=== PATIENT | female | born 1945 | race Two or more races ===

== ENCOUNTER 2024-06-15 03:15 | Emergency (ER) | payer OTHER, MEDICAID, SELFPAY ==
[2024-06-15 03:15] VITALS: PULSE 104; RESP 24; O2SAT 96
--- NOTE | 2024-06-15 03:25 | PD.EDADULT ---
ED General RME/HPI General Chief complaint: Anxiety Stated complaint: ANXIETY Time Seen by Provider: 06/15/24 03:22 Arrival date/time: 06/15/24 03:15 RME / HPI RME / HPI narrative: This section includes all my notes and documentations, including HPI, PE, and ED course. Hugo Angelo MD HPI: 78yo female with pmhx hypertension, methamphetamine and alcohol abuse, history of Parkinson disease BIBA presents to the ED after she requested to come to the ED. PPD was called due to the patient not having any pants on and patient requested to come in, so they called 911. Patient has incomprehensible speech and is unable to provide any history. ROS: Unobtainable due to the patient's incomprehensible speech. Physical Exam: General: Alert and oriented. Appears anxious. No acute distress. Eyes: Conjunctivae and lids clear. EOMI. PERRL. ENT: No nasal congestion. Neck: Supple. Heart: RRR. Lungs: No respiratory distress. Good air movement. No rhonchi, wheezing, rales. Abdomen: Soft and nontender. Normal bowel sounds. No distension. No rebound or guarding. Legs: No clubbing, cyanosis, edema. Skin: Warm and dry. Neuro: Alert and oriented X 3. Cranial Nerves II-XII grossly intact. No peripheral motor deficits. I ordered diagnostic tests. At 6 AM, the care of the patient was transferred to Dr. Sorensen. Hugo Angelo MD Related Data Home Medications ?Medication ?Instructions ?Recorded ?Confirmed pantoprazole 40 mg tablet,delayed 40 mg PO QDAY 08/09/22 05/31/24 release pramipexole 0.5 mg tablet 0.5 mg PO HS 08/09/22 05/31/24 simvastatin 20 mg tablet 20 mg PO DAILY 01/31/24 05/31/24 pioglitazone 15 mg tablet 15 mg PO QDAY 05/31/24 05/31/24 Previous Rx's ?Medication ?Instructions ?Recorded amlodipine 10 mg tablet 10 mg PO QDAY 30 days #30 tabs 06/02/24 folic acid 1 mg tablet 1 mg PO QDAY 14 days #14 tabs 06/02/24 gabapentin 100 mg capsule 200 mg (2 x 100 mg) PO BID 30 days 06/02/24 #0 caps lisinopril 10 mg tablet 10 mg PO DAILY 30 days #0 tabs 06/02/24 montelukast 10 mg tablet 10 mg PO DAILY 30 days #0 tabs 06/02/24 nortriptyline 10 mg capsule 10 mg PO QDAY 30 days #30 caps 06/02/24 Allergies Allergy/AdvReac Type Severity Reaction Status Date / Time No Known Allergies Allergy Verified 03/28/24 12:22 Review of Systems Review of Systems Systems Reviewed: All systems reviewed, normal except as documented ED Exam Narrative Physical exam: As noted in HPI. Course Quality Measures none Orders Category Date Time Status Bedside COVID-19 Antigen Test NOW Care 06/15/24 04:02 Active Bedside Influenza A&B Antigen Test NOW Care 06/15/24 04:02 Active EKG (ED ONLY) *Do not use* NOW Care 06/15/24 04:03 Completed Saline [Insert IV] NOW Care 06/15/24 04:02 Active Straight [In and Out Catheter] X1 Care 06/15/24 04:[address] head/brain wo con Stat Exams 06/15/24 04:03 Taken EKG (ED Only) Stat Exams 06/15/24 04:03 Draft XR chest 1V portable Stat Exams 06/15/24 04:18 Taken Acetaminophen Stat Lab 06/15/24 04:48 Received Alcohol, Blood Medical Stat Lab 06/15/24 04:48 Received Ammonia Stat Lab 06/15/24 04:48 Received CBC Stat Lab 06/15/24 04:48 Completed CK [Creatine Kinase] Stat Lab 06/15/24 04:48 Received CMP [Comprehensive Metabolic Panel] Stat Lab 06/15/24 04:48 Received Drug Screen,Urine Stat Lab 06/15/24 04:03 Ordered Lactate (Lactic Acid) Stat Lab 06/15/24 04:48 Completed Magnesium Stat Lab 06/15/24 04:48 Received Salicylate Stat Lab 06/15/24 04:48 Received TSH [Thyroid Stimulating Hormone] Stat Lab 06/15/24 04:48 Received Troponin I Stat Lab 06/15/24 04:48 Received UA [Urinalysis] Stat Lab 06/15/24 04:03 Ordered Vital Signs Vital signs: Vital Signs Temperature 98.0 F 06/15/24 03:49 Pulse Rate 76 06/15/24 03:49 Respiratory Rate 18 06/15/24 03:49 Blood Pressure 178/67 H 06/15/24 03:49 Pulse Oximetry (%) 100 06/15/24 03:49 Oxygen Delivery Method Room Air 06/15/24 03:49 Pulse ox is 100% on room air, which is normal according to my interpretation. [facility] Patient data External records reviewed:: [facility] previous records (Per chart review, patient was admitted here from 05/30/24-06/04/24 for acute renal failure.) Clinical information provided by:: patient Social determinants that could affect healthcare access:: substance use Patient has the following chronic illnesses:: hypertension, methamphetamine and alcohol abuse, history of Parkinson disease How is presenting disease/condition affected by chronic disease/condition?: exacerbated by Evaluation data The following diagnostics were reviewed and interpreted by me:: lab results, radiology exam(s) and EKG tracing(s) (My interpretation of the EKG: NSR (71 bpm) with no ST-T changes. Hugo Angelo MD) Lab and/or radiology exams considered but not ordered:: none Interpretation Summary: See HPI. Medications Medications considered but not ordered:: none Medication administrations:: see above, if any Consultations Consultation(s) initiated? (list below): No Diagnosis Differential Diagnosis ED Complaint MDM: anxiety, worsening psychiatric disorder, drug intoxication Most likely diagnosis given after review of the tests above:: see below Admission Indicated Admission indicated?: not indicated Explain why admission is indicated or not indicated:: Patient is pending work-up at the time of sign out. Admission Request Was there a request for admission?: No Disposition Plan Disposition Plan: other (specify) (Signed out to Dr. Sorensen at 0600 pending work-up and complete disposition.) Medical Decision Making Differential Diagnosis Differential Diagnosis: anxiety, worsening psychiatric disorder, drug intoxication Lab Data 06/15/24 04:48 06/15/24 04:48 Labs: Lab Results 06/15/24 Range/Units 04:48 WBC 8.0 (3.6-11.0) Thou/mm3 RBC 2.87 L (4.00-5.20) Miln/mm3 Hgb 9.0 L (12.0-16.0) g/dL Hct 28.2 L (36.0-46.0) % MCV 98 (80-100) fL MCH 31.4 (25.0-35.0) pg MCHC 31.9 (31.0-37.0) g/dl RDW Std Deviation 57.1 H (36.4-46.3) fL Plt Count 407 D (140-440) Thou/mm3 Neut % (Auto) 73 (37-80) % Lymph % (Auto) 18 (10-50) % Wilson % (Auto) 7 (0-12) % Eos % (Auto) 0 (0-10) % Baso % (Auto) 0 (0-2.5) % Neut # (Auto) 5.8 (1.8-7.7) Thou/mm3 Lymph # (Auto) 1.5 (1.0-4.8) Thou/mm3 Wilson # (Auto) 0.6 (0.0-0.8) Thou/mm3 Eos # (Auto) 0.0 (0.0-0.5) Thou/mm3 Baso # (Auto) 0.0 (0.0-0.2) Thou/mm3 Immature Gran # (Auto) 0.02 H (0.00-0.00) Thou/mm3 Absolute Nucleated RBC 0.00 (0.00-0.00) Thou/mm3 Immature Gran % 0 (0-0) % Nucleated RBC % 0 (0) /100 WBC Lactic Acid 0.9 (0.4-2.0) mMol/L Discharge Plan Prescriptions/Referrals Prescriptions/Med Rec: No Action pramipexole 0.5 mg tablet 0.5 mg PO HS Patient Comments: pantoprazole 40 mg Tablet,Delayed Release (Dr/Ec) 40 mg PO QDAY simvastatin 20 mg tablet 20 mg PO DAILY Patient Comments: TAKE 1 TABLET BY MOUTH EVERY DAY WITH DINNER pioglitazone 15 mg Tablet 15 mg PO QDAY amlodipine 10 mg Tablet 10 mg PO QDAY 30 Days Qty: 30 0RF nortriptyline 10 mg Capsule 10 mg PO QDAY 30 Days Qty: 30 0RF lisinopril 10 mg tablet 10 mg PO DAILY 30 Days Qty: 0 0RF Patient Comments: TAKE 1 TABLET BY MOUTH AT DINNER folic acid 1 mg tablet 1 mg PO QDAY 14 Days Qty: 14 0RF montelukast 10 mg tablet 10 mg PO DAILY 30 Days Qty: 0 0RF Patient Comments: TAKE 1 TABLET BY MOUTH EVERY DAY gabapentin 100 mg capsule 200 mg PO BID 30 Days Qty: 0 0RF Patient Comments: TAKE 2 CAPSULE BY MOUTH THREE TIMES A DAY Problem List Clinical Impression: AMS (altered mental status) Patient/Caregiver Discharge Instructions Print Language: Japanese
[2024-06-15 03:49] VITALS: BP 178/67; PULSE 76; RESP 18; TEMP 36.7; O2SAT 100
--- NOTE | 2024-06-15 04:03 | EKG_ITS ---
[facility] Test Date: 2024-06-15 Pat Name: SHANTE TIMMONS Department: Room: - Gender: Female [employer] Winder: : 1945 Requested By: Hugo Mooney Order Number: [id number] Reading MD: Hugo Mooney Measurements Intervals [place] Rate: 71 P: 57 SC: 149 QRS: 1 QRSD: 67 T: 55 QT: 395 QTc: 431 Interpretive Statements SINUS RHYTHM Compared to ECG 05/30/2024 19:22:20 No significant changes /store/S0/[id number]
--- NOTE | 2024-06-15 04:03 | XR_ITS ---
Examination: CT brain head without contrast. 2-D sagittal coronal reconstructions Date and time of exam:June 15, 2024 0459 hrs. Comparison June 09, 2024 Indications: Altered mental status today, altered mental status May 30, 2024, stroke alert February 28, 2024 with altered mental status left-sided body weakness, chronic microvascular white matter change on brain MRI February 28, 2024 CTDI: vol (mGy):44.1 DLP: (mGycm):873 Technique: Multiple CT axial sections of the brain have been obtained, 5 mm slice thickness. Contrast has not been administered. 2-D sagittal, coronal reconstructions have been obtained Low dose protocols were performed. One or more of the following dose reduction techniques were used; automated exposure control, adjustment of the mA and/or KV according to patient size, use of iterative reconstruction technique. Findings: No significant ventricular enlargement. Intra-axial or extra-axial hemorrhage density is not seen. No mass effect or midline shift Basal cisterns are not remarkable. Fourth ventricle is midline. Cranial vault intact. Impression: Negative for acute hemorrhage, mass effect or midline shift Consider repeat brain MRI follow-up to best assess for acute ischemic change
--- NOTE | 2024-06-15 04:18 | XR_ITS ---
Examination: PA chest single view Technique: Upright PA chest single view Exam date and time: June 15, 2024 0412 hrs. Indications: Onset shortness of breath today Findings: Normal heart size No pneumonia or pulmonary edema Prominent osteopenia Impression: No active disease
[2024-06-15 04:30] VITALS: BMI 18.1
--- NOTE | 2024-06-15 04:45 | PC.NURSE ---
Pt presents to the er appearing very anxious and agitated. Pt mumbling words making it difficult to understand. Pt pacing around in room. Pt directed to lay down in bed, pt followed commands but is tossing around in gurney. pt crying and appears upset when asked what brought her into the er. pt placed on monitor. pt updated on plan of care. pt awaiting to seen by .
[2024-06-15 05:01] LABS: Lactate (Lactic Acid) 0.9 mMol/L (0.4-2.0)
[2024-06-15 05:02] LABS: Basophils % (Auto) 0 % (0-2.5); Eosinophils % (Auto) 0 % (0-10); Hematocrit 28.2 % (36.0-46.0); Immature Granulocytes % (Auto) 0 % (0-0); Immature Granulocytes Auto 0.02 Thou/mm3 (0.00-0.00); Lymphocytes # (Auto) 1.5 Thou/mm3 (1.0-4.8); Lymphocytes % (Auto) 18 % (10-50); Mean Corpuscular HGB Conc 31.9 g/dl (31.0-37.0); Mean Corpuscular Hemoglobin 31.4 pg (25.0-35.0); Mean Corpuscular Volume 98 fL (80-100); Monocytes # (Auto) 0.6 Thou/mm3 (0.0-0.8); Monocytes % (Auto) 7 % (0-12); Neutrophils # (Auto) 5.8 Thou/mm3 (1.8-7.7); Neutrophils % (Auto) 73 % (37-80); Nucleated Red Blood Cell % 0 /100 WBC (0); Platelet Count 407 Thou/mm3 (140-440); RDW Standard Deviation 57.1 fL (36.4-46.3); Red Blood Count 2.87 Miln/mm3 (4.00-5.20)
--- NOTE | 2024-06-15 05:10 | PC.NURSE ---
Pt's boyfriend who is now at bedside informed Rn that became upset after an argument. Pt boyfriends states pt was accusing him of stealing from her, after arguing pt walked away became acting erratically removing her clothing. PPD was called out to scene, and when they arrived pt continued to act erratically. pt was sent by ems to ed. pt denies any si/hi, auditory or visual hallucinations.
[2024-06-15 05:53] LABS: Acetaminophen < 2.0 mcg/mL (10.0-20.0); Alanine Aminotransferase 10 U/L (10-49); Albumin, Serum 4.1 gm/dL (3.4-4.8); Albumin/Globulin Ratio 1.5 (1.2-2.2); Alcohol, Blood Medical < 3.0 mg/dL (0-10.0); Alkaline Phosphatase 75 U/L (46-116); Ammonia < 10 uMol/L (11-32); Anion Gap 8 (7-16); Aspartate Amino Transferase 15 U/L (0-34); BUN/Creatinine Ratio 14 Ratio (12-20); Bilirubin,Total 1.3 mg/dL (0.3-1.2); Blood Urea Nitrogen 25 mg/dL (9-23); Calcium 9.4 mg/dL (8.3-10.6); Calcium (Corrected) 9.4 mg/dL (8.5-10.1); Carbon Dioxide 21.6 mMol/L (20.0-31.0); Chloride 110 mMol/L (98-107); Creatine Kinase 170 U/L (34-171); Creatinine (Component) 1.8 mg/dL (0.6-1.3); Estimated Creatinine Clearance 16.3 mL/min (>60); Globulin 2.7 gm/dL (2.3-3.5); Glucose 101 mg/dL (74-106); Magnesium 2.1 mg/dL (1.6-2.6); Osmolality,Calculated 283 (275-295); Potassium 3.9 mMol/L (3.4-5.1); Salicylate < 3.0 mg/dL; Sodium 140 mMol/L (136-145); Thyroid Stimulating Hormone 0.71 uIU/mL (0.55-4.78); Total Protein 6.8 gm/dL (5.7-8.2); Troponin I 0.029 ng/mL (0.0-0.045); eGFR 28 See Note
--- NOTE | 2024-06-15 05:59 | PRELIM_ITS ---
CT scan of the head without intravenous contrast (axial sections with sagittal and coronal reformats) June 15, 2024 0459 hours Clinical history: Altered mental status. Radiation Dose: Total exam DL P 873 mGy/cm Comparison: No prior study is available for comparison. Findings:The evaluation is limit ed due to motion artifact. There is no evidence of intracranial hemorrhage, mass effect or midline sh ift. There are periventricular white matter hypodensities, compatible with chronic small vessel ische ghassan. There is mild volume loss. There is dural calcification along the anterior falx. The calvarium i s unremarkable. The mastoid air cells and the visualized paranasal sinuses are clear.Impression:No ev idence of intracranial hemorrhage, mass effect or midline shift (motion limited evaluation). Other fi ndings as described above. Report Electronically Signed By: Kiran Mast 06/15/2024 5:58:52 AM [E ST]
[2024-06-15 06:17] VITALS: BP 153/81; PULSE 83; RESP 14; TEMP 37.1; O2SAT 99
--- NOTE | 2024-06-15 07:35 | PD.EDADDENDU ---
Emergency Room Addendum Addendum Narrative: Patient's care was transitioned from Dr. Angelo. Pending labs for anxiety and anticipated to be discharged home. Labs are all stable and patient is discharged home in stable condition. The CT of the head was unremarkable as well.
[2024-06-15 07:40] VITALS: BP 150/68; PULSE 75; RESP 18; TEMP 36.5; O2SAT 99
--- NOTE | 2024-06-15 08:22 | PD.EDADDENDU ---
Emergency Room Addendum Addendum Narrative: Patient was discharged home yesterday. Once home he got drunk again,
[2024-06-15 09:09] LABS: Collection Type, Urine Clean Catch
[2024-06-15 09:25] LABS: Bilirubin,Urine Negative (Negative); Blood,Urine Negative (Negative); Clarity,Urine Clear (Clear/Hazy); Color,Urine Lt-Yellow (Lt Yel-Yel); Glucose, Urine Negative (Negative); Hyaline Casts,Urine < 1 /hpf (0-1); Ketones,Urine Negative (Negative); Leukocyte Esterase,Urine Negative (Negative); Nitrite,Urine Negative (Negative); Protein,Urine Trace (Neg - Trace); RBC,Urine 3 /hpf (0-3); Specific Gravity,Urine 1.016 (1.001-1.035); Squamous Epithelial Cell,Urine 1 /hpf (0-5); Urobilinogen,Urine Negative mg/dL (0.0-1.0); WBC,Urine 3 /hpf (0-5)
[2024-06-15 10:30] VITALS: BP 138/75; PULSE 91; RESP 18; TEMP 36.6; O2SAT 95
--- NOTE | 2024-06-15 10:30 | PC.NURSE ---
informed pt that she is being discharged. pt states that she has no clothes. clothing provided for pt at this time.
--- NOTE | 2024-06-15 10:50 | PC.NURSE ---
pt refusing to leave. pt states that she wants other clothes and wants talk to officer to report an incident that happened. informed pt that we can go get other clothing if she wants and can call officer for her to speak with. pt yelling at staff and refusing to get out of bed. security contacted
--- NOTE | 2024-06-15 11:11 | PC.NURSE ---
pt refused to sign dc paperworks. pt escorted out by security at this time
--- NOTE | 2024-06-15 11:17 | PC.CC ---
ED Inbound Call Center Representative assisted with locating an alternative pair of pants for Pt.
[2024-06-15 12:22] LABS: Amphetamine/Methamp Scrn,U Negative (Negative); Barbiturate Screen,Urine Negative (Negative); Benzodiazepines Screen,Urine Negative (Negative); Benzoylecgonine Screen, Ur Negative (Negative); Fentanyl Screen,Urine Negative (Negative); Opiate Screen,Urine Negative (Negative); THC Screen,Urine Negative (Negative)
== END 2024-06-15 10:30 | disposition home or self-care (01) ==
PROVIDERS: Emergency Medicine; Emergency Provider Emergency Medicine; PCP Family Medicine
DX: R41.82 Altered mental status, unspecified (principal); I10 Essential (primary) hypertension; R06.02 Shortness of breath
CPT/HCPCS: 36415; 70450; 71045; 80053; 80307; 80320; 80329; 81001; 82140; 82550; 83605; 83735; 84443; 84484; 85025; 87400; 87811; 93005; 99284; G0480

== ENCOUNTER 2024-07-14 17:42 | Emergency (ER) | payer OTHER, MEDICAID, SELFPAY ==
[2024-07-14 17:48] VITALS: BP 193/88; PULSE 77; PULSE 84; RESP 18; TEMP 37.4; O2SAT 100; O2SAT 98; BMI 15.9; BMI 16.5
--- NOTE | 2024-07-14 18:37 | PC.NURSE ---
pt did not answer when name was called and was not found outside.
--- NOTE | 2024-07-14 20:28 | PC.NURSE ---
NO ANSWER FOR CALL BACK
== END 2024-07-14 20:29 | disposition left against medical advice (07) ==
PROVIDERS: Emergency Provider Emergency Medicine
DX: Z53.21 Procedure and treatment not carried out due to patient leaving prior to being seen by health care provider (principal)
CPT/HCPCS: 99281

== ENCOUNTER 2024-08-08 23:59 | Emergency (ER) | payer OTHER, MEDICAID, SELFPAY ==
[2024-08-09] VITALS (8 sets, daily range): BP systolic 149–208; BP diastolic 78–113; PULSE 70–76; RESP 16–21; TEMP 36.9–37.1; O2SAT 97–100; BMI 18.3
--- NOTE | 2024-08-09 00:38 | EKG_ITS ---
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
[2024-08-09 02:13] LABS: Basophils % (Auto) 1 % (0-2.5); Eosinophils # (Auto) 0.1 Thou/mm3 (0.0-0.5); Eosinophils % (Auto) 1 % (0-10); Hematocrit 33.5 % (36.0-46.0); Hemoglobin 10.8 g/dL (12.0-16.0); Immature Granulocytes % (Auto) 0 % (0-0); Immature Granulocytes Auto 0.01 Thou/mm3 (0.00-0.00); Lymphocytes # (Auto) 1.5 Thou/mm3 (1.0-4.8); Lymphocytes % (Auto) 26 % (10-50); Mean Corpuscular HGB Conc 32.2 g/dl (31.0-37.0); Mean Corpuscular Hemoglobin 31.6 pg (25.0-35.0); Mean Corpuscular Volume 98 fL (80-100); Monocytes # (Auto) 0.5 Thou/mm3 (0.0-0.8); Monocytes % (Auto) 9 % (0-12); Neutrophils # (Auto) 3.7 Thou/mm3 (1.8-7.7); Neutrophils % (Auto) 63 % (37-80); Nucleated Red Blood Cell % 0 /100 WBC (0); Platelet Count 258 Thou/mm3 (140-440); RDW Standard Deviation 50.9 fL (36.4-46.3); Red Blood Count 3.42 Miln/mm3 (4.00-5.20); White Blood Count 5.9 Thou/mm3 (3.6-11.0)
[2024-08-09 02:17] LABS: B-Type Natriuretic Peptide 168 pg/mL (0-100)
[2024-08-09 02:18] LABS: Alanine Aminotransferase 12 U/L (10-49); Albumin, Serum 4.4 gm/dL (3.4-4.8); Albumin/Globulin Ratio 1.6 (1.2-2.2); Alkaline Phosphatase 100 U/L (46-116); Anion Gap 11 (7-16); Aspartate Amino Transferase 23 U/L (0-34); BUN/Creatinine Ratio 17 Ratio (12-20); Bilirubin,Total 0.6 mg/dL (0.3-1.2); Blood Urea Nitrogen 19 mg/dL (9-23); Calcium 9.7 mg/dL (8.3-10.6); Calcium (Corrected) 9.7 mg/dL (8.5-10.1); Carbon Dioxide 24.4 mMol/L (20.0-31.0); Chloride 108 mMol/L (98-107); Creatinine (Component) 1.1 mg/dL (0.6-1.3); Estimated Creatinine Clearance 29.7 mL/min (>60); Globulin 2.7 gm/dL (2.3-3.5); Glucose 129 mg/dL (74-106); Osmolality,Calculated 289 (275-295); Potassium 3.6 mMol/L (3.4-5.1); Sodium 143 mMol/L (136-145); Total Protein 7.1 gm/dL (5.7-8.2); Troponin I 0.038 ng/mL (0.0-0.045); eGFR 51 See Note
--- NOTE | 2024-08-09 03:56 | PD.EDCHEST ---
ED Chest Pain RME/HPI General Chief Complaint: Chest Pain Stated Complaint: CHEST PAIN Arrival date/time: 08/08/24 23:59 Limitations: no limitations RME / HPI RME / HPI narrative: Dr. [facility] ED Evaluation: 78yo female with pmhx Parkinson's disease, CAD, HTN, DM BIBA presents to the ED for a chief complaint of chest pain x 2100. Patient describes the pain as pressure in nature. No radiation or migration. Otherwise, patient has incomprehensible speech and does not provide any further history. Related Data Home Medications ?Medication ?Instructions ?Recorded ?Confirmed pantoprazole 40 mg tablet,delayed 40 mg PO QDAY 08/09/22 05/31/24 release pramipexole 0.5 mg tablet 0.5 mg PO HS 08/09/22 05/31/24 simvastatin 20 mg tablet 20 mg PO DAILY 01/31/24 05/31/24 pioglitazone 15 mg tablet 15 mg PO QDAY 05/31/24 05/31/24 Previous Rx's ?Medication ?Instructions ?Recorded amlodipine 10 mg tablet 10 mg PO QDAY 30 days #30 tabs 06/02/24 folic acid 1 mg tablet 1 mg PO QDAY 14 days #14 tabs 06/02/24 gabapentin 100 mg capsule 200 mg (2 x 100 mg) PO BID 30 days 06/02/24 #0 caps lisinopril 10 mg tablet 10 mg PO DAILY 30 days #0 tabs 06/02/24 montelukast 10 mg tablet 10 mg PO DAILY 30 days #0 tabs 06/02/24 nortriptyline 10 mg capsule 10 mg PO QDAY 30 days #30 caps 06/02/24 Allergies Allergy/AdvReac Type Severity Reaction Status Date / Time No Known Allergies Allergy Verified 03/28/24 12:22 Review of Systems Review of Systems Systems Reviewed: All systems reviewed, normal except as documented Past Medical History Past Medical History NEUROLOGIC: Positive Neurological Disorders, Cerebrovascular Accident, Dementia, Parkinson's Disease, Seizures and Head Trauma CARDIAC: Positive Cardiac Disorders, Coronary Artery Disease, Hypercholesterolemia and Hypertension; Negative Myocardial Infarction, Cardiac Arrhythmia, Atrial Fibrillation, Angina, Heart Murmur, Atherosclerotic Heart Disease, Peripheral Vascular Disease, Aneurysm, Congestive Heart Failure, Congenital Heart Disease, Valvular Heart Disease, Rheumatic Fever, Cardiomyopathy, Edema, Pericarditis, Cellulitis, Deep Vein Thrombosis, Hypotension or Varicose Veins RESPIRATORY: Negative Chronic Obstructive Pulmonary Disease (COPD) or Asthma GASTROINTESTINAL: Positive Gastrointestinal Disorders, Gastrointestinal Bleed and Ulcer; Negative Hepatitis or Colorectal Cancer GENITOURINARY: Negative Genitourinary Disorders, Renal Disease or Prostate Cancer REPRODUCTIVE: Negative Breast Cancer, Pelvic Inflammatory Disease or Testicular Cancer MUSCULOSKELETAL: Positive Musculoskeletal Disorders and Osteomyelitis; Negative Bone Cancer ENT: Positive Cataracts and Head Trauma ENDOCRINE: Positive Endocrine Disorders and Diabetes Mellitus Type 2; Negative Diabetes Mellitus Type 1 HEMATOLOGIC: Positive Anemia; Negative Blood Disorders or Sickle Cell Disease PSYCHO/SOCIAL: Positive Recreational Drug Use, Depression and Anxiety OTHER HISTORY: Positive Hospitalization, Falls and Blood Transfusions; Negative Autoimmune Disease, Down Syndrome, Shingles, Blood Transfusion Reaction, Anesthesia Reactions, Organ Transplant, Chemotherapy, Radiation Therapy, Hyperbaric Therapy, MRSA, VRSA, Vancomycin-Resistant Enterococci, Human Immunodeficiency Virus (HIV), Chicken Pox, Measles, Mumps, Pertussis, Clostridium Difficile, Cancer, Breast Cancer, Cervical Cancer, Colorectal Cancer, Lung Cancer, Ovarian Cancer, Prostate Cancer or Testicular Cancer Family History FAMILY HISTORY: Positive Family Cancer and Family Surgery; Negative Family Psychiatric Problems, Family Respiratory Disorders, Family Cardiac Disorders, Family Gastrointestinal Problems or Family Anesthesia Reaction Surgical History SURGICAL: Negative Cardiac Surgery, Pacemaker, Endocrine Surgery, Thyroidectomy, Ear Surgery, Abdominal Surgery, Nephrectomy, Joint Replacement, Neurologic Surgery, Brain Shunt, Mastectomy, Lumpectomy, Hysterectomy, Tubal Ligation, Section, Vasectomy or Organ Transplant Social History SMOKING STATUS: Never smoker SUBSTANCE USE: does not use ED Exam General Limitations: Present no limitations General appearance: Present alert and in no apparent distress Head Head exam: Present atraumatic Eye Eye exam: Present normal appearance, PERRL and EOMI ENT ENT exam: Present normal exam, normal oropharynx and mucous membranes moist Neck Neck exam: Present normal inspection, full ROM and trachea midline Chest Chest inspection: Present normal inspection and symmetric chest wall rise Respiratory Respiratory exam: Present normal lung sounds bilaterally Cardiovascular Cardiovascular exam: Present regular rate, normal rhythm and normal heart sounds Abdominal Exam Abdominal exam: Present soft and normal bowel sounds Extremities Exam Extremities exam: Present normal inspection and full ROM Back Exam Back exam: Present normal inspection and full ROM Neurological Exam Neurological exam: Present alert, oriented X3 and CN II-XII intact Psychiatric Psychiatric exam: Present normal affect and normal mood Skin Skin exam: Present warm, dry, intact and normal color Course Course Course Narrative: CXR is ordered for determining the etiology of chest pain. Quality Measures none Orders Category Date Time Status EKG (ED ONLY) *Do not use* NOW Care 08/09/24 00:38 Completed EKG (ED Only) Stat Exams 08/09/24 00:38 Draft BNP [B-Type Natriuretic Peptide] Stat Lab 08/09/24 01:33 Completed CBC Stat Lab 08/09/24 01:33 Completed CMP [Comprehensive Metabolic Panel] Stat Lab 08/09/24 01:33 Completed Troponin I Stat Lab 08/09/24 01:33 Completed Vital Signs Vital signs: Vital Signs Temperature 98.5 F 08/09/24 00:01 Pulse Rate 76 08/09/24 00:01 Respiratory Rate 18 08/09/24 00:01 Blood Pressure 175/113 H 08/09/24 00:01 Pulse Oximetry (%) 98 08/09/24 00:01 Oxygen Delivery Method Room Air 08/09/24 00:01 Pulse ox is 98% on room air, which is normal according to my interpretation. Chest Pain Patient data External records reviewed:: [facility] previous records (Per chart review, patient was seen here on 06/15/24 for altered mental status.) Clinical information provided by:: patient Social determinants that could affect healthcare access:: substance use (history of methamphetamine abuse) Patient has the following chronic illnesses:: HTN How is presenting disease/condition affected by chronic disease/condition?: uneffected by Evaluation data The following diagnostics were reviewed and interpreted by me:: lab results, radiology exam(s) and EKG tracing(s) Lab and/or radiology exams considered but not ordered:: none Interpretation Summary: CBC is normal, CMP is normal, troponin is normal, BNP is 168, according to my interpretation. EKG done at 0046, NSR, rate of 66, RBBB, no acute ST or T-wave changes, no STEMI, according to my interpretation. Medications / Prescriptions Medications or Prescriptions considered but not ordered:: none Medication administrations:: see above, if any Consultations Consultation(s) initiated? (list below): No Discharge Plan Prescriptions/Referrals Prescriptions/Med Rec: No Action pramipexole 0.5 mg tablet 0.5 mg PO HS Patient Comments: pantoprazole 40 mg Tablet,Delayed Release (Dr/Ec) 40 mg PO QDAY simvastatin 20 mg tablet 20 mg PO DAILY Patient Comments: TAKE 1 TABLET BY MOUTH EVERY DAY WITH DINNER pioglitazone 15 mg Tablet 15 mg PO QDAY amlodipine 10 mg Tablet 10 mg PO QDAY 30 Days Qty: 30 0RF nortriptyline 10 mg Capsule 10 mg PO QDAY 30 Days Qty: 30 0RF lisinopril 10 mg tablet 10 mg PO DAILY 30 Days Qty: 0 0RF Patient Comments: TAKE 1 TABLET BY MOUTH AT DINNER folic acid 1 mg tablet 1 mg PO QDAY 14 Days Qty: 14 0RF montelukast 10 mg tablet 10 mg PO DAILY 30 Days Qty: 0 0RF Patient Comments: TAKE 1 TABLET BY MOUTH EVERY DAY gabapentin 100 mg capsule 200 mg PO BID 30 Days Qty: 0 0RF Patient Comments: TAKE 2 CAPSULE BY MOUTH THREE TIMES A DAY Referrals: Lorne Luo MD [Primary Care Provider] - In 1 week Patient/Caregiver Discharge Instructions Print Language: Maori
--- NOTE | 2024-08-09 03:57 | XR_ITS ---
Examination: AP chest single view Technique one AP portable semiupright chest single view Exam date and time: August 09, 2024 1600 hours COMPARISON: June 15, 2024 INDICATIONS: Onset shortness of breath chest pain today. FINDINGS: Normal heart size Ectatic thoracic aorta. No pneumonia or pulmonary edema Prominent osteopenia IMPRESSION: No pneumonia or pulmonary edema
[2024-08-09 04:57] LABS: Collection Type, Urine Catheter
[2024-08-09 05:08] LABS: Bacteria,Urine Rare; Bilirubin,Urine Negative (Negative); Blood,Urine 1+ (Negative); Clarity,Urine Turbid (Clear/Hazy); Color,Urine Lt-Yellow (Lt Yel-Yel); Culture Indicated,Urine Yes; Glucose, Urine Negative (Negative); Ketones,Urine Negative (Negative); Leukocyte Esterase,Urine Positive (Negative); Nitrite,Urine Negative (Negative); PH,Urine 6.5 (5.0-7.0); Protein,Urine 1+ (Neg - Trace); RBC,Urine 8 /hpf (0-3); Specific Gravity,Urine 1.014 (1.001-1.035); Squamous Epithelial Cell,Urine 3 /hpf (0-5); Urobilinogen,Urine Negative mg/dL (0.0-1.0); WBC,Urine 44 /hpf (0-5)
--- NOTE | 2024-08-09 05:11 | PD.EDCHEST ---
ED Chest Pain RME/HPI General Chief Complaint: Chest Pain Stated Complaint: CHEST PAIN Arrival date/time: 08/08/24 23:59 RME / HPI RME / HPI narrative: Dr. [facility] ED Evaluation: 78yo female with pmhx Parkinson's disease, CAD, HTN, DM BIBA presents to the ED for a chief complaint of chest pain x 2100. Patient describes the pain as pressure in nature. No radiation or migration. Otherwise, patient has incomprehensible speech and does not provide any further history. Related Data Home Medications ?Medication ?Instructions ?Recorded ?Confirmed pantoprazole 40 mg tablet,delayed 40 mg PO QDAY 08/09/22 05/31/24 release pramipexole 0.5 mg tablet 0.5 mg PO HS 08/09/22 05/31/24 simvastatin 20 mg tablet 20 mg PO DAILY 01/31/24 05/31/24 pioglitazone 15 mg tablet 15 mg PO QDAY 05/31/24 05/31/24 Previous Rx's ?Medication ?Instructions ?Recorded amlodipine 10 mg tablet 10 mg PO QDAY 30 days #30 tabs 06/02/24 folic acid 1 mg tablet 1 mg PO QDAY 14 days #14 tabs 06/02/24 gabapentin 100 mg capsule 200 mg (2 x 100 mg) PO BID 30 days 06/02/24 #0 caps lisinopril 10 mg tablet 10 mg PO DAILY 30 days #0 tabs 06/02/24 montelukast 10 mg tablet 10 mg PO DAILY 30 days #0 tabs 06/02/24 nortriptyline 10 mg capsule 10 mg PO QDAY 30 days #30 caps 06/02/24 Allergies Allergy/AdvReac Type Severity Reaction Status Date / Time No Known Allergies Allergy Verified 03/28/24 12:22 Review of Systems Review of Systems Systems Reviewed: All systems reviewed, normal except as documented ED Exam General General appearance: Present alert, cachectic and other (looks older than stated age, dissheveled, no aphasia, no dysphagia) Head Head exam: Present atraumatic and normocephalic Eye Eye exam: Present normal appearance, PERRL and EOMI ENT ENT exam: Present normal exam and mucous membranes moist Neck Neck exam: Present normal inspection and full ROM Chest Chest inspection: Present normal inspection and symmetric chest wall rise Respiratory Respiratory exam: Present normal lung sounds bilaterally; Absent accessory muscle use Cardiovascular Cardiovascular exam: Present regular rate and normal rhythm Abdominal Exam Abdominal exam: Present soft Extremities Exam Extremities exam: Present normal inspection and full ROM Back Exam Back exam: Present normal inspection and full ROM Neurological Exam Neurological exam: Present alert Skin Skin exam: Present warm and dry Course Course Course Narrative: CXR is ordered for determining the etiology of chest pain. Quality Measures none Orders Category Date Time Status EKG (ED ONLY) *Do not use* NOW Care 08/09/24 00:38 Completed In and Out Catheter X1 Care 08/09/24 04:00 Active CXRP [XR chest 1V portable] Stat Exams 08/09/24 03:57 Taken EKG (ED Only) Stat Exams 08/09/24 00:38 Draft BNP [B-Type Natriuretic Peptide] Stat Lab 08/09/24 01:33 Completed CBC Stat Lab 08/09/24 01:33 Completed CMP [Comprehensive Metabolic Panel] Stat Lab 08/09/24 01:33 Completed Drug Screen,Urine Stat Lab 08/09/24 04:35 Ordered Troponin I Stat Lab 08/09/24 01:33 Completed Troponin I Stat Lab 08/09/24 05:11 Ordered Urinalysis, C/S if Indicated Stat Lab 08/09/24 04:35 Completed Urine Culture Stat Lab 08/09/24 04:35 Received cephALEXin [Keflex] Med 08/09/24 05:20 Discontinued 500 mg PO X1 ONE Vital Signs Vital signs: Vital Signs Temperature 98.5 F 08/09/24 00:01 Pulse Rate 76 08/09/24 00:01 Respiratory Rate 18 08/09/24 00:01 Blood Pressure 175/113 H 08/09/24 00:01 Pulse Oximetry (%) 98 08/09/24 00:01 Oxygen Delivery Method Room Air 08/09/24 00:01 Pulse ox is 98% on room air, which is normal according to my interpretation. Chest Pain Patient data External records reviewed:: [facility] previous records (Per chart review, patient was seen here on 06/05/24 for altered mental status.) Clinical information provided by:: patient Social determinants that could affect healthcare access:: substance use (history of methamphetamine use) Patient has the following chronic illnesses:: as below How is presenting disease/condition affected by chronic disease/condition?: exacerbated by Evaluation data The following diagnostics were reviewed and interpreted by me:: lab results, radiology exam(s) and EKG tracing(s) Lab and/or radiology exams considered but not ordered:: none Interpretation Summary: CBC is normal, CMP is normal, Troponin is normal, BNP is 168, UA is positive for a UTI, according to my interpretation. CXR is rotated, flattened diaphragm, no CHF, no infiltrates, similar to previous CXR, according to my interpretation. EKG done at 0046, NSR, rate of 68, RBBB, no acute ST or T-wave changes, no acute ischemia, according to my interpretation. Medications / Prescriptions Medications or Prescriptions considered but not ordered:: none Medication administrations:: Medication Administration History Discontinued Medications Cephalexin HCl (Cephalexin 250 Mg Capsule) 500 mg PO X1 ONE Stop: 08/09/24 05:21 see above, if any Consultations Consultation(s) initiated? (list below): No Diagnosis Chest Pain Differential Diagnosis: costochondritis and other (NSTEMI, STEMI) Most likely diagnosis given after review of the tests above:: see below Admission Indicated Admission indicated?: not indicated Admission Request Was there a request for admission?: No Disposition Plan Disposition Plan: Discharge Discharge Attestation Discharge Attestation: The patient and all family members were given an opportunity to ask questions and understood the discharge instructions. Discharge instructions specifically effects, indications for sooner follow up or return to the emergency department, and the expected course of current diagnosis. Patient condition: Stable Discharge Plan Plan Patient condition on transfer: Stable Prescriptions/Referrals Prescriptions/Med Rec: No Action pramipexole 0.5 mg tablet 0.5 mg PO HS Patient Comments: pantoprazole 40 mg Tablet,Delayed Release (Dr/Ec) 40 mg PO QDAY simvastatin 20 mg tablet 20 mg PO DAILY Patient Comments: TAKE 1 TABLET BY MOUTH EVERY DAY WITH DINNER pioglitazone 15 mg Tablet 15 mg PO QDAY amlodipine 10 mg Tablet 10 mg PO QDAY 30 Days Qty: 30 0RF nortriptyline 10 mg Capsule 10 mg PO QDAY 30 Days Qty: 30 0RF lisinopril 10 mg tablet 10 mg PO DAILY 30 Days Qty: 0 0RF Patient Comments: TAKE 1 TABLET BY MOUTH AT DINNER folic acid 1 mg tablet 1 mg PO QDAY 14 Days Qty: 14 0RF montelukast 10 mg tablet 10 mg PO DAILY 30 Days Qty: 0 0RF Patient Comments: TAKE 1 TABLET BY MOUTH EVERY DAY gabapentin 100 mg capsule 200 mg PO BID 30 Days Qty: 0 0RF Patient Comments: TAKE 2 CAPSULE BY MOUTH THREE TIMES A DAY Referrals: Lorne Luo MD [Primary Care Provider] - In 1 week Problem List Clinical Impression: Chest pain Patient/Caregiver Discharge Instructions Education Materials: ED Chest Pain, Uncertain Cause Additional Instructions: Return to emergency department for any worsening symptoms, or any other concerns. Please continue all your medications as prescribed. If you would like some help with going to a long term please let us know and we will have the protective services social worker talk to you. Print Language: Turkish
[2024-08-09] MEDS: cephALEXin 250 MG CAPSULE 500 MG PO (06:26)
--- NOTE | 2024-08-09 06:56 | PC.NURSE ---
06 CALLED AND LEFT MESSAGE WITH DIAN TWICE. 622 CALLED AND SPOKE WITH DELMI HE STATES THAT PT IS HOMELESS AND STAYS ON THE STREETS. DELMI STATES THAT SHE WON'T LISTEN TO ANYONE AND WANTS TO DO WHAT SHE WANTS TO DO. DELMI STATES THAT SHE STAYED IN HIS HOME AND HE CAME HOME AND SHE WAS GONE WITH ALL HER STUFF.
--- NOTE | 2024-08-09 07:00 | PC.NURSE ---
patient is alert and oriented x4, she states she left her family home yesterday because she was mad at them for not wanting her dog, she states she is ok with hospital contacting her family, social service contacted and consulted, she was informed about hospital staff calling her family to try and plan a safe discharge for her, she does agree with the plan.
--- NOTE | 2024-08-09 07:19 | PC.NURSE ---
Pt is a GCS 15, A&Ox4 and states she currently is homeless and living on the streets. Pt is requesting oncology social worker to see if there is anything they can do to assist her at this time as she states she has no one here to call and no place she can go. Day shift head charger Sara requested that her emergency contacts be contacted. When I asked pt if she would like us to call the emergency contacts in her chart, she stated no. TOBI Crum requested Bola contact them, despite me informing her what patient's wishes were.
[2024-08-09 07:43] LABS: Troponin I 0.029 ng/mL (0.0-0.045)
--- NOTE | 2024-08-09 09:19 | PC.NURSE ---
resources provided to patient, she agrees to the plan of discharge, food provided and clothes, she is alert and oriented x4
--- NOTE | 2024-08-09 09:27 | PC.CC ---
Patient reports she is okay with us contacting family but wishes to get a ride to [facility] if no uber available okay with making contact with her brother, Jaden
== END 2024-08-09 10:11 | disposition home or self-care (01) ==
PROVIDERS: Emergency Provider Emergency Medicine; PCP Family Medicine
DX: R07.9 Chest pain, unspecified (principal); I45.10 Unspecified right bundle-branch block; N39.0 Urinary tract infection, site not specified; I10 Essential (primary) hypertension; I25.10 Atherosclerotic heart disease of native coronary artery without angina pectoris
CPT/HCPCS: 36415; 71045; 80053; 80307; 81001; 83880; 84484; 85025; 87077; 87086; 87186; 93005; 99283; A9270

== ENCOUNTER 2025-06-08 12:49 | Emergency (ER) | payer MEDICARE, MEDICAID, SELFPAY ==
--- NOTE | 2025-06-08 12:52 | EDNOTE_ITS ---
ED General RME/HPI General Chief complaint: Chest Pain Stated complaint: CHEST PAIN Time Seen by Provider: 06/08/25 12:51 Arrival date/time: 06/08/25 12:49 CC: Right sided chest pain HPI onset for the past 2 days. EMS report that she was screaming when they picked her up however she promptly fell asleep in [facility] transport, patient had to be woken up and states that she has right-sided chest pain and not had it before. EMS report me that the patient has had a heavy use of opioids. Related Data Home Medications ?Medication ?Instructions ?Recorded ?Confirmed pantoprazole 40 mg tablet,delayed 40 mg PO QDAY 05/31/24 release pramipexole 0.5 mg tablet 0.5 mg PO HS 08/09/22 simvastatin 20 mg tablet 20 mg PO DAILY 01/31/2403/16 pioglitazone 15 mg tablet 15 mg PO QDAY 05/31/2405/31 Previous Rx's ?Medication ?Instructions ?Recorded amlodipine 10 mg tablet 10 mg PO QDAY 30 days #30 ta bs 06/02/24 folic acid 1 mg tablet 1 mg PO QDAY 14 days #14 tab s 06/02/24 gabapentin 100 mg capsule 200 mg (2 x 100 mg) PO BID 3 0 days 06/02/24 #0 caps lisinopril 10 mg tablet 10 mg PO DAILY 30 days #0 ta bs 06/02/24 montelukast 10 mg tablet 10 mg PO DAILY 30 days #0 ta bs 06/02/24 nortriptyline 10 mg capsule 10 mg PO QDAY 30 days #30 caps 06/02/24 cephalexin 500 mg capsule 500 mg PO BID #14 caps 06/08 Allergies Allergy/AdvReac Type Severity Reaction Status Date / Time No Known Allergies Allergy Verified 06/08/25 13:12 Review of Systems Review of Systems Narrative Review of Systems: GEN: No fever, no chills, no weight loss EYES: No discharge, no visual changes, no pain HEENT: No ear pain, no congestion, no sore throat PULM: No shortness of breath, no cough, no congestion CV: + chest pain, no dyspnea on exertion, no palpitations GI: No nausea, no vomiting, no diarrhea, no pain, no constipation : No frequency, no urgency, no dysuria MUSC/SKEL: No joint pain, no back pain SKIN: No rash PSYCH: No hallucinations, no depression HEME/LYMPH: No easy bleeding or bruising tendencies NEURO: No weakness, no headache ED Exam Narrative Physical exam: [General: Petite, appears not in any acute distress Head normocephalic HEENT: Eyes pupils are PERRLA EOMs are intact mouth [place] dry membranes all of her subsystems of HEENT are within acceptable limits Neck is supple nontender Chest equal chest rise nontender to palpation Respiratory: Clear to auscultation no wheezes crackles or rubs CV: Rate rhythm is regular no murmurs rubs or clicks Abdomen is soft nontender no masses positive bowel sounds all 4 quadrants Back: No CVA tenderness no spinous process tenderness from cervical spine thoracic and lumbar spine Skin: Intact no petechiae rash induration ulceration or crepitus Extremities: Moving all extremity against resistance cap refill less than 2 seconds neurosensory intact Neuro: Awake alert oriented x3 Glascow coma 15 no focal deficits] Course Course Course Narrative: On repeat exam now that the patient is more awake at 1617, the patient has site- specific pain to the right anterior chest, laboratory results are wholly unremarkable other than a UTI will discharge home. Quality Measures none Orders Category Date Time Status EKG (ED ONLY) *Do not use* NOW Care 06/08/25 12:52 Completed EKG (ED Only) Stat Exams 06/08/25 12:52 Draft XR chest 1V Stat Exams 06/08/25 12:52 Completed B-Type Natriuretic Peptide Stat Lab 06/08/25 13:09 Completed CBC Stat Lab 06/08/25 13:09 Completed Comprehensive Metabolic Panel Stat Lab 06/08/25 13:09 Completed Drug Screen,Urine Stat Lab 06/08/25 14:28 Completed LDH (Lactate Dehydrogenase) Stat Lab 06/08/25 13:09 Completed Magnesium Stat Lab 06/08/25 13:09 Completed Partial Thromboplastin Time Stat Lab 06/08/25 13:09 Completed Prothrombin Time with INR Stat Lab 06/08/25 13:09 Completed Troponin I Stat Lab 06/08/25 13:09 Completed Urinalysis, C/S if Indicated Stat Lab 06/08/25 14:28 Completed Urine Culture Stat Lab 06/08/25 14:28 Received cefTRIAXone/D5w 1gm IV premix [Rocephin/D5w 1gm IV Med 06/08/25 15:57 Active premix] 1 gm in 50 ml IV X1 Vital Signs Vital signs: Vital Signs Pulse Rate 74 06/08/25 13:18 Respiratory Rate 18 06/08/25 13:18 Blood Pressure 173/85 H 06/08/25 13:18 Pulse Oximetry (%) 100 06/08/25 13:18 Oxygen Delivery Method Room Air 06/08/25 13:18 Discharge Plan Plan Patient Disposition: HOME (Self Care) Patient condition on transfer: Stable Prescriptions/Referrals Prescriptions/Med Rec: New cephalexin 500 mg capsule 500 mg PO BID Qty: 14 0RF No Action pramipexole 0.5 mg tablet 0.5 mg PO HS Patient Comments: pantoprazole 40 mg Tablet,Delayed Release (Dr/Ec) 40 mg PO QDAY simvastatin 20 mg tablet 20 mg PO DAILY Patient Comments: TAKE 1 TABLET BY MOUTH EVERY DAY WITH DINNER pioglitazone 15 mg Tablet 15 mg PO QDAY amlodipine 10 mg Tablet 10 mg PO QDAY 30 Days Qty: 30 0RF nortriptyline 10 mg Capsule 10 mg PO QDAY 30 Days Qty: 30 0RF lisinopril 10 mg tablet 10 mg PO DAILY 30 Days Qty: 0 0RF Patient Comments: TAKE 1 TABLET BY MOUTH AT DINNER folic acid 1 mg tablet 1 mg PO QDAY 14 Days Qty: 14 0RF montelukast 10 mg tablet 10 mg PO DAILY 30 Days Qty: 0 0RF Patient Comments: TAKE 1 TABLET BY MOUTH EVERY DAY gabapentin 100 mg capsule 200 mg PO BID 30 Days Qty: 0 0RF Patient Comments: TAKE 2 CAPSULE BY MOUTH THREE TIMES A DAY Referrals: Lorne uLo MD [Primary Care Provider, Family Practice] - In 1 week Problem List Clinical Impression: Chest wall pain, UTI (urinary tract infection) Patient/Caregiver Discharge Instructions Education Materials: ED Chest Pain, Uncertain Cause, ED CYSTITIS Female Adult Additional Instructions: Take the medication as prescribed follow-up with your primary care doctor. Print Language: Czech Stand Alone Forms: Tracie Award Info., Patient Portal Info Letter, Work/School Release PA/CLINICAL LEADER Supervising Physician PA/CLINICAL LEADER Supervising Physician: Gab Heck ENP MDM Clinical Information Provided by: patient and EMS [facility] Chronic Illness/Social Conditions Explain: Alcohol abuse EKG Interpretation EKG #1: EKG Interpretation: EKG performed at 1358 shows a ventricular rate of 73 IN interval 167 QRS of 6 7 QTc of 444 there is normal sinus rhythm. Labs Labs: interpreted by me Lab(s) Interpretation(s): CBC shows no acute leukocytosis and H&H of 9.0 and 28.0 no review of the H&H shows the patient has a stable anemia. No thrombocytopenia CMP shows a chloride of 108 creatinine 1.4 no other electrolyte imbalances renal impairment transaminitis or T. bili elevation Troponin is 0.034 BNP at 312 Coags within acceptable limits. Urine is turbid 20 WBCs leukocyte esterase positive and 2+ bacteria. Medication Administration(s) Medication Administration History Ceftriaxone Sodium/Dextrose (Rocephin/D5w 1gm Iv Premix) 1 gm in 50 mls @ 100 mls/hr IV X1 ONE Stop: 06/08/25 16:26 Last Admin: 06/08/25 16:04 Dose: 100 mls/hr Documented By: SONAL
--- NOTE | 2025-06-08 12:52 | XR_ITS ---
EXAMINATION: AP chest single view TECHNIQUE: AP portable semiupright chest single view Date and time: June 08, 2025, 1320 hours, comparison August 09, 2024 INDICATION: Chest pain today FINDINGS: Accentuation basilar bronchovascular markings Normal heart size Ectatic thoracic aorta Prominent osteopenia IMPRESSION: Basilar bronchitis pattern
--- NOTE | 2025-06-08 12:52 | EKG_ITS ---
[facility] Test Date: 2025-06-08 Pat Name: SHANTE TIMMONS Department: Room: - Gender: Female Retort Loader: : 1945 Requested By: Gab Mehta Order Number: [id number] Reading MD: Gab Mehta Measurements Intervals [place] Rate: 73 P: 56 ND: 167 QRS: 1 QRSD: 67 T: 51 QT: 418 QTc: 462 Interpretive Statements SINUS RHYTHM Compared to ECG 08/09/2024 00:46:00 Left-axis deviation no longer present Right bundle-branch block no longer present /store/S0/[id number].pdf
[2025-06-08 13:04] VITALS: PULSE 74; RESP 20; O2SAT 100; BMI 17.6
[2025-06-08 13:18] VITALS: BP 173/85; PULSE 74; RESP 18; O2SAT 100
[2025-06-08 13:50] LABS: Basophils # (Auto) 0.0 Thou/mm3 (0.0-0.2); Basophils % (Auto) 1 % (0-2.5); Eosinophils # (Auto) 0.0 Thou/mm3 (0.0-0.5); Eosinophils % (Auto) 1 % (0-10); Hematocrit 28.0 % (36.0-46.0); Hemoglobin 9.0 g/dL (12.0-16.0); Immature Granulocytes Auto 0.02 Thou/mm3 (0.00-0.00); Lymphocytes # (Auto) 0.9 Thou/mm3 (1.0-4.8); Lymphocytes % (Auto) 20 % (10-50); Mean Corpuscular HGB Conc 32.1 g/dl (31.0-37.0); Mean Corpuscular Hemoglobin 33.0 pg (25.0-35.0); Mean Corpuscular Volume 103 fL (80-100); Monocytes # (Auto) 0.4 Thou/mm3 (0.0-0.8); Monocytes % (Auto) 9 % (0-12); Neutrophils # (Auto) 3.1 Thou/mm3 (1.8-7.7); Neutrophils % (Auto) 70 % (37-80); Nucleated Red Blood Cell # 0.00 Thou/mm3 (0.00-0.00); Nucleated Red Blood Cell % 0 /100 WBC (0); Platelet Count 226 Thou/mm3 (140-440); RDW Standard Deviation 51.8 fL (36.4-46.3); Red Blood Count 2.73 Miln/mm3 (4.00-5.20); White Blood Count 4.4 Thou/mm3 (3.6-11.0)
[2025-06-08 14:08] LABS: B-Type Natriuretic Peptide 312 pg/mL (0-100)
[2025-06-08 14:09] LABS: Alanine Aminotransferase 17 U/L (10-49); Albumin, Serum 4.2 gm/dL (3.4-4.8); Albumin/Globulin Ratio 2.2 (1.2-2.2); Alkaline Phosphatase 72 U/L (46-116); Anion Gap 14 (7-16); Aspartate Amino Transferase 29 U/L (0-34); BUN/Creatinine Ratio 14 Ratio (12-20); Bilirubin,Total 0.4 mg/dL (0.3-1.2); Blood Urea Nitrogen 19 mg/dL (9-23); Calcium 8.7 mg/dL (8.3-10.6); Calcium (Corrected) 8.7 mg/dL (8.5-10.1); Carbon Dioxide 23.0 mMol/L (20.0-31.0); Chloride 108 mMol/L (98-107); Creatinine (Component) 1.4 mg/dL (0.6-1.3); Estimated Creatinine Clearance 20.7 mL/min (>60); Globulin 1.9 gm/dL (2.3-3.5); Glucose 89 mg/dL (74-106); LDH (Lactate Dehydrogenase) 269 U/L (120-246); Magnesium 1.9 mg/dL (1.6-2.6); Osmolality,Calculated 289 (275-295); Potassium 3.4 mMol/L (3.4-5.1); Sodium 145 mMol/L (136-145); Total Protein 6.1 gm/dL (5.7-8.2); Troponin I 0.034 ng/mL (0.0-0.045); eGFR 38 See Note
[2025-06-08 14:25] LABS: INR 0.9 (0.9-1.3); Partial Thromboplastin Time 24.5 Seconds (22.0-36.0); Prothrombin Time 9.9 Seconds (9.0-12.2)
[2025-06-08 14:38] LABS: Collection Type, Urine Clean Catch
[2025-06-08 14:52] LABS: Bacteria,Urine 2+; Bilirubin,Urine Negative (Negative); Blood,Urine Trace (Negative); Clarity,Urine Turbid (Clear/Hazy); Color,Urine Lt-Yellow (Lt Yel-Yel); Glucose, Urine Negative (Negative); Ketones,Urine Negative (Negative); Leukocyte Esterase,Urine Positive (Negative); Nitrite,Urine Negative (Negative); PH,Urine 6.0 (5.0-7.0); Protein,Urine 1+ (Neg - Trace); RBC,Urine 2 /hpf (0-3); Specific Gravity,Urine 1.013 (1.001-1.035); Squamous Epithelial Cell,Urine 4 /hpf (0-5); Urobilinogen,Urine Negative mg/dL (0.0-1.0); WBC,Urine 20 /hpf (0-5)
[2025-06-08 14:54] LABS: Culture Indicated,Urine Yes
[2025-06-08 15:04] LABS: Amphetamine/Methamp Scrn,U Negative (Negative); Barbiturate Screen,Urine Negative (Negative); Benzodiazepines Screen,Urine Negative (Negative); Benzoylecgonine Screen, Ur Negative (Negative); Fentanyl Screen,Urine Negative (Negative); Opiate Screen,Urine Negative (Negative); THC Screen,Urine Negative (Negative)
[2025-06-08 15:09] VITALS: BP 145/74; PULSE 75; RESP 20; TEMP 36.8; O2SAT 99
[2025-06-08] MEDS: cefTRIAXone/D5w 1gm IV premix 1 GM/50 ML BAG IV (16:04)
[2025-06-08 16:09] VITALS: BP 165/84; PULSE 76; RESP 23; TEMP 37.1; O2SAT 98
== END 2025-06-08 17:00 | disposition home or self-care (01) ==
PROVIDERS: Registered Nurse General Practice; Emergency Provider Emergency Medicine; PCP Family Medicine
DX: N39.0 Urinary tract infection, site not specified (principal); F10.10 Alcohol abuse, uncomplicated
CPT/HCPCS: 36415; 71045; 80053; 80307; 81001; 83615; 83735; 83880; 84484; 85025; 85610; 85730; 87077; 87086; 87186; 93005; 99283; J0696

== ENCOUNTER 2025-06-08 19:11 | Emergency (ER) | payer MEDICARE, MEDICAID, SELFPAY ==
--- NOTE | 2025-06-08 19:13 | EKG_ITS ---
[facility] Test Date: 2025-06-08 Pat Name: SHANTE TIMMONS Department: Room: - Gender: Female Family Law Legal Assistant: : 1945 Requested By: ED Temporary Provider Order Number: [id number] Reading MD: ED Temporary Provider Measurements Intervals [place] Rate: 82 P: 81 ND: 148 QRS: -23 QRSD: 119 T: 58 QT: 431 QTc: 505 Interpretive Statements SINUS RHYTHM INDETERMINATE AXIS RIGHT BUNDLE BRANCH BLOCK [120+ ms QRS DURATION, UPRIGHT V1, 40+ ms S IN I/aVL/V4/V5/V6] Compared to ECG 06/08/2025 13:58:52 Indeterminate axis now present Right bundle-branch block now present /store/S0/[id number].pdf
[2025-06-08 19:24] VITALS: BP 161/81; PULSE 75; RESP 17; TEMP 36.6; O2SAT 99
[2025-06-08 19:25] VITALS: BMI 16.5
--- NOTE | 2025-06-08 19:51 | EDRME_ITS ---
Rapid Medical Screening Exam [facility] Arrival date/time: 06/08/25 19:11 This is a case of 79-year-old female with history of hypertension came in in the emergency room due to chest pain patient was seen in the morning and was treated for chest wall pain due to worsening of the symptoms this patient decided to sought consult here in the emergency room Chief Complaint: Chest Pain Time Seen by Provider: 06/08/25 19:49 Vital signs: Vital Signs Temperature 97.9 F 06/08/25 19:24 Pulse Rate 75 06/08/25 19:24 Respiratory Rate 17 06/08/25 19:24 Blood Pressure 161/81 H 06/08/25 19:24 Pulse Oximetry (%) 99 06/08/25 19:24 Oxygen Delivery Method Room Air 06/08/25 19:24 Exam: Normal rate regular rhythm no murmur lungs sound is clear no crackles no rales no retraction no stridor Clinical Impression: Chest pain
[2025-06-08 20:20] LABS: Basophils # (Auto) 0.0 Thou/mm3 (0.0-0.2); Basophils % (Auto) 0 % (0-2.5); Eosinophils # (Auto) 0.0 Thou/mm3 (0.0-0.5); Eosinophils % (Auto) 1 % (0-10); Hematocrit 30.7 % (36.0-46.0); Hemoglobin 9.8 g/dL (12.0-16.0); Immature Granulocytes Auto 0.01 Thou/mm3 (0.00-0.00); Lymphocytes # (Auto) 1.1 Thou/mm3 (1.0-4.8); Lymphocytes % (Auto) 24 % (10-50); Mean Corpuscular HGB Conc 31.9 g/dl (31.0-37.0); Mean Corpuscular Hemoglobin 33.2 pg (25.0-35.0); Mean Corpuscular Volume 104 fL (80-100); Monocytes # (Auto) 0.4 Thou/mm3 (0.0-0.8); Monocytes % (Auto) 9 % (0-12); Neutrophils # (Auto) 3.0 Thou/mm3 (1.8-7.7); Neutrophils % (Auto) 66 % (37-80); Nucleated Red Blood Cell # 0.00 Thou/mm3 (0.00-0.00); Nucleated Red Blood Cell % 0 /100 WBC (0); Platelet Count 239 Thou/mm3 (140-440); RDW Standard Deviation 52.4 fL (36.4-46.3); Red Blood Count 2.95 Miln/mm3 (4.00-5.20); White Blood Count 4.5 Thou/mm3 (3.6-11.0)
[2025-06-08 20:29] VITALS: BP 166/90; PULSE 65; RESP 18; O2SAT 97
--- NOTE | 2025-06-08 20:30 | PD.EDCHEST ---
ED Chest Pain RME/HPI General Chief Complaint: Chest Pain Stated Complaint: RIGHT SIDE CHEST PAIN Time Seen by Provider: 06/08/25 19:49 Arrival date/time: 06/08/25 19:11 RME / HPI RME / HPI narrative: 06/08/25 19:11 This is a case of 79-year-old female with history of hypertension came in in the emergency room due to chest pain patient was seen in the morning and was treated for chest wall pain due to worsening of the symptoms this patient decided to sought consult here in the emergency room Dr. [facility] ED Evaluation: 79yo female with a history of Parkinson's disease, CAD, HTN, DM presents to the ED for a chief complaint of mid chest pain x 1200. No radiation or migration. Patient denies any fever, chills, cough, shortness of breath or any other associated symptoms. Patient has not taken anything for the pain at home. Patient endorses experiencing similar symptoms in the past. NKA. Related Data Home Medications ?Medication ?Instructions ?Recorded ?Confirmed pantoprazole 40 mg tablet,delayed 40 mg PO QDAY 08/09/22 05/31/24 release pramipexole 0.5 mg tablet 0.5 mg PO HS 08/09/22 05/31/24 simvastatin 20 mg tablet 20 mg PO DAILY 01/31/24 05/31/24 pioglitazone 15 mg tablet 15 mg PO QDAY 05/31/24 05/31/24 Previous Rx's ?Medication ?Instructions ?Recorded amlodipine 10 mg tablet 10 mg PO QDAY 30 days #30 tabs 06/02/24 folic acid 1 mg tablet 1 mg PO QDAY 14 days #14 tabs 06/02/24 gabapentin 100 mg capsule 200 mg (2 x 100 mg) PO BID 30 days 06/02/24 #0 caps lisinopril 10 mg tablet 10 mg PO DAILY 30 days #0 tabs 06/02/24 montelukast 10 mg tablet 10 mg PO DAILY 30 days #0 tabs 06/02/24 nortriptyline 10 mg capsule 10 mg PO QDAY 30 days #30 caps 06/02/24 cephalexin 500 mg capsule 500 mg PO BID #14 caps 06/08/25 Allergies Allergy/AdvReac Type Severity Reaction Status Date / Time No Known Allergies Allergy Verified 06/08/25 13:12 Review of Systems Review of Systems Systems Reviewed: All systems reviewed, normal except as documented ED Exam Narrative Physical exam: Generally patient is alert thin and somewhat cachectic appearing female but in no obvious distress, heart regular rate and rhythm, lungs clear to auscultation equal bilaterally, abdomen soft bowel sounds present nondistended nontender, chest shows reproducible tenderness to the anterior chest wall without crepitance or subcu air, neurologic exam no focal motor deficits and Andra Coma Scale is 15. Course Quality Measures none Orders Category Date Time Status EKG (ED ONLY) *Do not use* NOW Care 06/08/25 19:13 Completed EKG (ED Only) Stat Exams 06/08/25 19:13 Ordered BNP [B-Type Natriuretic Peptide] Stat Lab 06/08/25 20:12 Received CBC Stat Lab 06/08/25 20:12 Completed CMP [Comprehensive Metabolic Panel] Stat Lab 06/08/25 20:12 Completed D-Dimer Stat Lab 06/08/25 20:12 Completed Troponin I Stat Lab 06/08/25 20:12 Completed Acetaminophen Tab [Tylenol Tab] Med 06/08/25 20:37 Discontinued 650 mg PO X1 ONE Vital Signs Vital signs: Vital Signs Temperature 97.9 F 06/08/25 19:24 Pulse Rate 75 06/08/25 19:24 Respiratory Rate 17 06/08/25 19:24 Blood Pressure 161/81 H 06/08/25 19:24 Pulse Oximetry (%) 99 06/08/25 19:24 Oxygen Delivery Method Room Air 06/08/25 19:24 Chest Pain MDM Narrative MDM Narrative:: Scribe Attestation: 06/08/25 Gladis Tejada am scribing for and in the presence of Dr. Johns. EKG done at 7:19 PM shows normal sinus rhythm at a rate of 82 with a right bundle branch block. This was compared to an EKG done in July of this year with little change. Troponin is not elevated. D-dimer is not elevated. Chest x-ray done this morning showed a torturous aorta. Patient has no radiation of pain to the back. She is not hypertensive. I do not suspect at this time a dissecting aortic aneurysm. Physical exam is compatible with chest wall pain as her pain is reproducible with palpation of the anterior chest wall. Here in the emergency room the patient was given Tylenol 650 mg p.o. She will be discharged in stable condition. She may take Tylenol 650 mg every 4 hours as needed for pain. Follow-up with her doctor for further treatment and evaluation. And it was restated to her that she may always return to the emergency room as needed or if condition worsens. Patient data External records reviewed:: [facility] previous records (Per chart review, patient was seen here earlier today for the same complaint.) Clinical information provided by:: patient Social determinants that could affect healthcare access:: none Patient has the following chronic illnesses:: Parkinson's disease, CAD, HTN, DM How is presenting disease/condition affected by chronic disease/condition?: exacerbated by Evaluation data The following diagnostics were reviewed and interpreted by me:: lab results and EKG tracing(s) Lab and/or radiology exams considered but not ordered:: none Interpretation Summary: See MDM Medications / Prescriptions Medications or Prescriptions considered but not ordered:: none Medication administrations:: Medication Administration History Discontinued Medications Acetaminophen (Acetaminophen 325 Mg Tablet) 650 mg PO X1 ONE Stop: 06/08/25 20:38 see above Consultations Consultation(s) initiated? (list below): No Diagnosis Chest Pain Differential Diagnosis: other (See MDM) Most likely diagnosis given after review of the tests above:: see clinical impression below Admission Indicated Admission indicated?: not indicated Admission Request Was there a request for admission?: No Disposition Plan Disposition Plan: Discharge Discharge Attestation Discharge Attestation: The patient and all family members were given an opportunity to ask questions and understood the discharge instructions. Discharge instructions specifically effects, indications for sooner follow up or return to the emergency department, and the expected course of current diagnosis. Patient condition: Stable Discharge Plan Plan Patient Disposition: HOME (Self Care) Prescriptions/Referrals Prescriptions/Med Rec: No Action pramipexole 0.5 mg tablet 0.5 mg PO HS Patient Comments: pantoprazole 40 mg Tablet,Delayed Release (Dr/Ec) 40 mg PO QDAY simvastatin 20 mg tablet 20 mg PO DAILY Patient Comments: TAKE 1 TABLET BY MOUTH EVERY DAY WITH DINNER pioglitazone 15 mg Tablet 15 mg PO QDAY amlodipine 10 mg Tablet 10 mg PO QDAY 30 Days Qty: 30 0RF nortriptyline 10 mg Capsule 10 mg PO QDAY 30 Days Qty: 30 0RF lisinopril 10 mg tablet 10 mg PO DAILY 30 Days Qty: 0 0RF Patient Comments: TAKE 1 TABLET BY MOUTH AT DINNER folic acid 1 mg tablet 1 mg PO QDAY 14 Days Qty: 14 0RF montelukast 10 mg tablet 10 mg PO DAILY 30 Days Qty: 0 0RF Patient Comments: TAKE 1 TABLET BY MOUTH EVERY DAY gabapentin 100 mg capsule 200 mg PO BID 30 Days Qty: 0 0RF Patient Comments: TAKE 2 CAPSULE BY MOUTH THREE TIMES A DAY cephalexin 500 mg capsule 500 mg PO BID Qty: 14 0RF Problem List Clinical Impression: Chest wall pain Patient/Caregiver Discharge Instructions Education Materials: ED Chest Pain, Uncertain Cause Additional Instructions: Take Tylenol 650 mg every 4 hours as needed for pain. Follow-up with your doctor. Return to ER as needed or if condition worsens. Print Language: Malian Stand Alone Forms: Tracie Award Info., Patient Portal Info Letter
[2025-06-08 20:36] LABS: D-Dimer 554 ng/mL (<600)
[2025-06-08 20:40] LABS: Alanine Aminotransferase 17 U/L (10-49); Albumin, Serum 4.3 gm/dL (3.4-4.8); Albumin/Globulin Ratio 1.7 (1.2-2.2); Alkaline Phosphatase 70 U/L (46-116); Anion Gap 12 (7-16); Aspartate Amino Transferase 26 U/L (0-34); BUN/Creatinine Ratio 11 Ratio (12-20); Bilirubin,Total 0.8 mg/dL (0.3-1.2); Blood Urea Nitrogen 17 mg/dL (9-23); Calcium 9.4 mg/dL (8.3-10.6); Calcium (Corrected) 9.4 mg/dL (8.5-10.1); Carbon Dioxide 25.5 mMol/L (20.0-31.0); Chloride 108 mMol/L (98-107); Creatinine (Component) 1.5 mg/dL (0.6-1.3); Estimated Creatinine Clearance 19.3 mL/min (>60); Globulin 2.5 gm/dL (2.3-3.5); Glucose 113 mg/dL (74-106); Osmolality,Calculated 291 (275-295); Potassium 3.8 mMol/L (3.4-5.1); Sodium 145 mMol/L (136-145); Total Protein 6.8 gm/dL (5.7-8.2); Troponin I 0.027 ng/mL (0.0-0.045); eGFR 35 See Note
[2025-06-08 20:52] LABS: B-Type Natriuretic Peptide 238 pg/mL (0-100)
[2025-06-08] MEDS: ACETAMINOPHEN 325 MG TABLET 650 MG PO (21:02)
[2025-06-08 21:26] VITALS: BP 166/90; PULSE 70; RESP 20; O2SAT 97
== END 2025-06-08 21:26 | disposition home or self-care (01) ==
LOC: SERX 21:38
PROVIDERS: Nurse Practitioner Family; Emergency Provider Emergency Medicine
DX: R07.89 Other chest pain (principal); E11.9 Type 2 diabetes mellitus without complications; G20.A1 Parkinson's disease without dyskinesia, without mention of fluctuations; I10 Essential (primary) hypertension; I25.10 Atherosclerotic heart disease of native coronary artery without angina pectoris
CPT/HCPCS: 36415; 80053; 83880; 84484; 85025; 85379; 93005; 99283; A9270